=== PATIENT | female | born 1960 | race Caucasian/White ===

== ENCOUNTER 2020-02-03 12:39 | Outpatient (CLI) | payer MEDICARE, MEDICAID, SELFPAY ==
--- NOTE | 2020-02-03 12:45 | ECG_ITS ---
Measurements Intervals [place] Rate: 87 P: -61 WI: 163 QRS: -12 QRSD: 90 T: 93 QT: 340 QTc: 409 Interpretive Statements SINUS OR ECTOPIC ATRIAL RHYTHM INCOMPLETE RIGHT BUNDLE BRANCH BLOCK DELAYED PRECORDIAL R/S TRANSITION BASELINE ARTIFACT- I, II, III, AVR, AVL, AVF, V1-V6 BORDERLINE ECG Electronically Signed On 02-03-2020 13:23:43 CDT by Sacha Alvarez D.O.
[2020-02-03 13:31] LABS: Hematocrit 48.3 % (37.0-47.0); Hemoglobin 16.2 g/dL (12.0-15.0)
== END 2020-02-03 12:40 | disposition home or self-care (01) ==
PROVIDERS: Anesthesiology; Visit Provider Urology
DX: F17.200 Nicotine dependence, unspecified, uncomplicated (principal); D64.9 Anemia, unspecified; I45.10 Unspecified right bundle-branch block
CPT/HCPCS: 36415; 85014; 85018; 93005

== ENCOUNTER 2020-02-05 00:05 | Outpatient (CLI) | payer MEDICARE, MEDICAID, SELFPAY ==
[2020-02-06 00:18] LABS: SARS-CoV-2 RNA PCR Negative
== END 2020-02-05 00:06 | disposition home or self-care (01) ==
LOC: ANHCOVIDDT 00:06
PROVIDERS: Visit Provider Urology
DX: Z01.812 Encounter for preprocedural laboratory examination (principal); Z11.59 Encounter for screening for other viral diseases
CPT/HCPCS: 87635; C9803; U0003

== ENCOUNTER 2020-02-08 01:26 | Day surgery (SDC) | payer MEDICARE, MEDICAID, SELFPAY ==
[2020-01-26 14:33] VITALS: BMI 25.9
--- NOTE | ~2020-02-08 | XR_ITS ---
EXAMINATION: XR fluoroscopy <1hr DATE: 02/08/2020 13:02 INDICATION: Removal of Interstim. TECHNIQUE: A single intraoperative view of the pelvis was obtained. I was not present. Fluoroscopy ex posure time was 8 seconds. COMPARISON: None. FINDINGS: A lead and forceps overlie the sacrum. Surgical clips overlie the pelvis. IMPRESSION: 1. Lead overlying the sacrum. Reviewed, dictated and finalized at location A.
--- NOTE | 2020-02-08 07:21 | WPDHPUPDATE1 ---
History and Physical Update Update Date/Time: 02/08/20 07:21 History and Physical has been reviewed, including an updated exam of the patient. There are NO changes in the patient's condition. Risks, benefits, and alternatives have been discussed and questions answered. Patient agrees to proceed with procedure.
[2020-02-08] MEDS: LACTATED RINGERS 1,000 ML 30 ML IV CONT (11:00)
[2020-02-08 11:11] VITALS: BMI 24.2
[2020-02-08 11:26] VITALS: BP 120/75; PULSE 73; RESP 20; TEMP 36.8; O2SAT 96
--- NOTE | 2020-02-08 11:38 | WPDANESEPPF ---
Anes - Initial Pre Proc Eval Procedure: Operation Date: 02/08/20 12:30 Proposed Procedures p Removal of Interstim - Cristi Alvarez MD Date/Time: 02/08/20 11:38 Surgeon: Cristi Alvarez MD Pre Op Diagnosis: overactive bladder Patient Data Age: 59 Gender: F Height: 5 ft 2 in Weight: 60 kg Last Vital Signs Temp 36.8 C 02/08/20 11:26 Pulse 73 02/08/20 11:26 Resp 20 02/08/20 11:26 BP 120/75 02/08/20 11:26 Pulse Ox 96 02/08/20 11:26 Allergies Allergy/AdvReac Type Severity Reaction Status Date / Time adhesive Allergy Unknown RASH Verified 02/08/20 10:49 Aminoglycosides Allergy Unknown Rash Verified 02/08/20 10:49 bacitracin Allergy Unknown Rash Verified 02/08/20 10:49 codeine Allergy Unknown UPSET Verified 02/08/20 10:49 STOMACH neomycin Allergy Unknown Rash Verified 02/08/20 10:49 polymyxin B Allergy Unknown Rash Verified 02/08/20 10:49 cefazolin [From Ancef] Allergy Hives Verified 02/08/20 10:49 NSAIDS (Non-Steroidal AdvReac Unknown Cramping Verified 02/08/20 10:49 Anti-Inflamma of the Muscles skin glue Allergy Rash Uncoded 02/08/20 10:49 Home Medications Medication Instructions Recorded Confirmed Type Calcium 600 + D(3) 1 tab-cap PO DAILY 01/26/20 02/08/20 History albuterol sulfate 2 inh INHALATION Q4-6H PRN 01/26/20 02/08/20 History alprazolam [Xanax] 0.5 mg PO BID PRN 01/26/20 02/08/20 History bupropion HCl [Wellbutrin SR] 150 mg PO BID 01/26/20 02/08/20 History duloxetine 60 mg PO DAILY 01/26/20 02/08/20 History ergocalciferol (vitamin D2) 1,250 mcg PO WEEKLY 01/26/20 02/08/20 History [Drisdol] estradiol cypionate 5 mg IM ONCE 01/26/20 02/08/20 History [Depo-Estradiol] estradiol-norethindrone acet 1 tablet PO DAILY 01/26/20 02/08/20 History [Activella] famotidine [Pepcid] 20 mg PO BID 01/26/20 02/08/20 History folic acid 1 mg PO DAILY 01/26/20 02/08/20 History icosapent ethyl 2 g PO BID 01/26/20 02/08/20 History myfbzwhntqrp-xphwbjqj-oogplb 1 tablet PO DAILY 01/26/20 02/08/20 History [Multivitamin 50 Plus] oxybutynin chloride 10 mg PO DAILY 01/26/20 02/08/20 History pantoprazole [Protonix] 40 mg PO BID 01/26/20 02/08/20 History tramadol 50 mg PO Q6H PRN 01/26/20 02/08/20 History trazodone 200 mg PO HS 01/26/20 02/08/20 History umeclidinium-vilanterol [Anoro 1 inh INHALATION DAILY 01/26/20 02/08/20 History Ellipta] valacyclovir 500 mg PO DAILY 01/26/20 02/08/20 History Patient hx anesthesia problems: none Family hx anesthesia problems: none PMFSH Past Medical History Medical History COPD (chronic obstructive pulmonary disease) NEVIN (obstructive sleep apnea) Schizophrenia Anes - Eval Final PreProcedure Day of Procedure 02/08/20 11:38 Patient weight: normal Heart: regular rate and rhythm Lungs: decreased breath sounds Airway: Mallampati scale class 1 Neurological: other (alert) Last oral intake: >/= 8 hours ASA classification: III Emergent: no Anesthetic plan: proceed Anesthesia type and monitoring: general GIVS and standard monitoring Informed Consent: The patient's anesthetic plan and its attendant risks and benefits were discussed with the patient/family/POA. Questions were solicited and answers provided to the satisfaction of the patient/family/POA.
--- NOTE | 2020-02-08 11:51 | SUR.PREOP ---
DR MONTES NOTIFIED OF PT'S SOB WITH EXERTION WHILE WALKING TO PREOP TODAY.
[2020-02-08] MEDS: levoFLOXacin 500 MG/D5W 100 ML 500 MG/100 ML BAG 100 MG IVPB (12:13)
[2020-02-08] MEDS: BUPIVACAINE/EPINEPHRINE 0.25% 50 ML VIAL 10 ML INFILTRATE (12:36)
--- NOTE | 2020-02-08 12:48 | PM.PROC ---
Procedure Note - Detailed Date of procedure: 02/08/20 Pre-op diagnosis: overactive bladder Procedure performed: Removal of InterStim system 52734, [id number] Description of procedure: The patient understands the risks of bleeding, infection, incomplete removal. They agreed to proceed. They were correctly identified and informed consent obtained. There brought to the operating room. There placed in the prone position. Lower back and buttock were prepped and draped in a sterile fashion. I anesthetized the skin over the pulse generator. I incised the skin and removed the pulse generator. I did use fluoroscopy to identify my lead. I anesthetized the skin and incised the skin over the lead. The lead was encountered and removed in its entirety. I then removed the capsule around the pulse generator. Wounds were vigorously irrigated. Hemostasis was assured. The subcutaneous tissue was closed with 2 0 Vicryl. The skin was closed with 4 0 Vicryl. gluei was applied. There then awakened and transferred to the PACU in stable condition. Anesthesia: MAC Surgeon: Cristi Alvarez MD Drains: No Packing: No Pathology: none sent Complications: No immediate complications Condition: stable Disposition: PACU
[2020-02-08 12:52] VITALS: BP 114/79; PULSE 92; RESP 16; O2SAT 95
[2020-02-08 13:05] VITALS: BP 121/76; PULSE 111; RESP 18; O2SAT 94
[2020-02-08 13:20] VITALS: BP 128/73; PULSE 72; RESP 18
== END 2020-02-08 13:24 | disposition home or self-care (01) ==
PROVIDERS: Visit Provider Urology
PROC: (CPT 64585; principal; 2020-02-08 12:30)
DX: Z45.42 Encounter for adjustment and management of neurostimulator (principal); N39.41 Urge incontinence; J44.9 Chronic obstructive pulmonary disease, unspecified; G47.33 Obstructive sleep apnea (adult) (pediatric); F20.9 Schizophrenia, unspecified
CPT/HCPCS: 64585; 64595; 76000; A9270; J0690; J1956; J2250; J2405; J2704; J3010; J7120